=== PATIENT | female | born 1990 | race Caucasian/White ===

== ENCOUNTER 2018-12-27 04:12 | Emergency (ER) | payer OTHER, SELFPAY ==
[2018-12-27] MEDS ORDERED: traMADol HCl 50 MG TAB ONE (04:45)
[2018-12-27] MEDS ORDERED: Azithromycin 250 MG TAB ONE (04:46)
== END 2018-12-27 05:00 | disposition home or self-care (01) ==
LOC: MADERS 04:12
DX: K04.7 Periapical abscess without sinus (principal); K02.9 Dental caries, unspecified; K03.81 Cracked tooth; F32.9 Major depressive disorder, single episode, unspecified
CPT/HCPCS: 99282

== ENCOUNTER 2019-08-06 12:47 | Emergency (ER) | payer OTHER ==
[2019-08-06 13:35] LABS: Bilirubin Negative (Negative); Blood, Urine Large (Negative); Clarity Cloudy (Clear); Glucose, Urine (Dipstick) Negative (Negative); Leukocyte Negative (Negative); Nitrite Negative (Negative); Protein, Urine (Dipstick) 100 mg/dL (Neg-Trace); Urobilinogen 0.2 mg/dL (Less than 2)
[2019-08-06 13:36] LABS: RBC/HPF Greater than 50 HPF (0-3)
[2019-08-06 13:37] LABS: Bacteria/HPF 3+ HPF (None Seen)
[2019-08-06 13:38] LABS: Pregnancy Test - Urine (BHCG) Negative (Negative); Pregu Control Background? CLEAR/WHITE (CLR/WHITE); Pregu Control Bar Appear? YES (CONTROL BAR); Specific Gravity 1.015 (1.002-1.036)
[2019-08-06] MEDS ORDERED: Ketorolac Tromethamine 30 MG/ML VIAL ONE (13:58)
[2019-08-06 15:06] LABS: Anisocytosis SLIGHT = 6-15 cells (100X) (0-5/hpf); Band 4 % (5-11); Eosinophils 2 % (0-10); Hemoglobin 13.5 g/dL (12.0-16.0); Hypochromia SLIGHT = 6-15 cells (100X) (0-5/hpf); Lymphocytes 23 % (21-51); MDiff Complete? YES; Mean Corpuscular HGB CONC 31.8 g/dL (32.0-36.0); Mean Corpuscular Hemoglobin 27.6 pg (27.0-31.0); Mean Corpuscular Volume 86.9 fL (78.0-98.0); Mean Platelet Volume 7.9 fL (7.4-10.4); Monocytes 5 % (0-10); Neutrophil 66 % (42-75); Platelet Count 189 thou/uL (130-400); Platelet Morphology Comment Appears Adequate; RBC Distribution Width 12.5 % (11.5-14.5); Red Blood Cell (RBC) Count 4.89 mill/uL (4.20-5.40); White Blood Cell (WBC) Count 9.5 thou/uL (4.8-10.8)
[2019-08-06 15:08] LABS: Anion Gap 16 mmol/L (10-20); BUN (Urea Nitrogen) 5 mg/dL (7.0-18.7); Calc. Creatinine Clearance 0 mL/min (70-130); Calcium 8.7 mg/dL (7.8-10.44); Carbon Dioxide 19 mmol/L (22-29); Chloride 108 mmol/L (98-107); Estimated GFR-MDRD Greater than 90; Glucose 89 mg/dL (70-105); Potassium 4.5 mmol/L (3.5-5.1); Sodium 138 mmol/L (136-145)
[2019-08-08 19:17] LABS: Chlamydia by PCR Inconclusive (NotDetected); GC by PCR Inconclusive (NotDetected)
== END 2019-08-06 14:55 | disposition short-term general hospital (02) ==
LOC: MADERS 12:47
DX: R10.2 Pelvic and perineal pain (principal); F32.9 Major depressive disorder, single episode, unspecified
CPT/HCPCS: 80048; 81003; 81015; 81025; 85025; 87480; 87491; 87510; 87591; 87660; 96372; 99284; J1885

== ENCOUNTER 2020-02-27 23:19 | Emergency (ER) | payer OTHER ==
[~2020-02-27 23:19] MED LIST: Iopamidol 370 76% 100 ML VIAL ONE
[2020-02-28] MEDS ORDERED: Morphine 4 MG/ML VIAL ONE (00:02)
[2020-02-28] MEDS ORDERED: Sodium Chloride 0.9% 1,000 ML ONE (00:02)
[2020-02-28] MEDS ORDERED: Ondansetron PF 4 MG/2 ML Vial ONE (00:02)
[2020-02-28 00:06] LABS: #Basophils 0.1 thou/uL (0.0-0.2); #Eosinphils 0.2 thou/uL (0.0-0.7); #Lymphocytes 3.4 thou/uL (1.20-3.40); #Monocytes 0.7 thou/uL (0.11-0.59); %Basophils 1.2 % (0.0-1.0); %Eosinophils 1.5 % (0.0-10.0); %Lymphocytes 32.5 % (21.0-51.0); %Monocytes 7.1 % (0.0-10.0); %Neutrophils 57.7 % (42.0-75.0); Hemoglobin 13.9 g/dL (12.0-16.0); Mean Corpuscular HGB CONC 31.7 g/dL (32.0-36.0); Mean Corpuscular Hemoglobin 27.6 pg (27.0-31.0); Mean Corpuscular Volume 87.1 fL (78.0-98.0); Mean Platelet Volume 8.6 fL (7.4-10.4); Platelet Count 174 thou/uL (130-400); RBC Distribution Width 12.8 % (11.5-14.5); Red Blood Cell (RBC) Count 5.03 mill/uL (4.20-5.40); White Blood Cell (WBC) Count 10.3 thou/uL (4.8-10.8)
[2020-02-28 00:24] LABS: ALT (SGPT) 42 U/L (8-55); AST (SGOT) 30 U/L (5-34); Albumin 4.1 g/dL (3.5-5.0); Alkaline Phosphatase 59 U/L (40-110); Anion Gap 13 mmol/L (10-20); BUN (Urea Nitrogen) 10 mg/dL (7.0-18.7); Bilirubin, Total 0.4 mg/dL (0.2-1.2); CRP (Inflammatory) 1.19 mg/dL (= or < 0.5); Calc. Creatinine Clearance 0 mL/min (70-130); Carbon Dioxide 19 mmol/L (22-29); Chloride 109 mmol/L (98-107); Estimated GFR-MDRD Greater than 90; Globulin 3.2 g/dL (2.4-3.5); Glucose 107 mg/dL (70-105); Protein, Total 7.3 g/dL (6.0-8.3); Sodium 137 mmol/L (136-145)
[2020-02-28 00:45] LABS: Bilirubin Negative (Negative); Blood, Urine Negative (Negative); Clarity Slightly Cloudy (Clear); Glucose, Urine (Dipstick) Negative (Negative); Ketone, Urine Negative (Negative); Leukocyte Negative (Negative); Nitrite Negative (Negative); Pregnancy Test - Urine (BHCG) Negative (Negative); Protein, Urine (Dipstick) Negative (Neg-Trace); Urobilinogen 0.2 mg/dL (Less than 2); pH, Urine 5.5 (5.0-9.0)
[2020-02-28 00:46] LABS: Pregu Control Background? CLEAR/WHITE (CLR/WHITE); Pregu Control Bar Appear? YES (CONTROL BAR); Specific Gravity 1.032 (1.002-1.036)
[2020-02-28 00:49] LABS: Specific Gravity, Urine 1.032 (1.005-1.030)
[2020-02-28] MEDS ORDERED: Ketorolac Tromethamine 30 MG/ML VIAL ONE (01:38)
--- NOTE | 2020-02-28 10:08 | CT ---
PRELIMINARY REPORT/[facility]/EMERGENCY AFTER HOURS PROCEDURE: EXAM: CT Abdomen and Pelvis with Intravenous Contrast CLINICAL HISTORY: RLQ PAIN X3 DAYS TECHNIQUE: Axial computed tomography images of the abdomen and pelvis with intravenous contrast. CONTRAST: With; 90 ml ISOVUE 370 COMPARISON: None provided. FINDINGS: LUNG BASES: No basilar airspace consolidation or pleural effusion. LIVER: The size is normal. There is fatty infiltration.. GALLBLADDER AND BILE DUCTS: Unremarkable. No calcified stone. No ductal dilation. PANCREAS: Unremarkable. SPLEEN: Unremarkable. ADRENAL GLANDS: Unremarkable. KIDNEYS, URETERS, AND BLADDER: Unremarkable. No hydronephrosis or nephrolithiasis. No ureteral or bladder calculi. STOMACH AND BOWEL: No obstruction. No wall thickening. No CT evidence of colitis or acute diverticulitis. APPENDIX: No CT evidence for appendicitis. The appendix is normal. PERITONEUM: No free fluid. No free air. LYMPH NODES: No lymphadenopathy. REPRODUCTIVE: The uterus is normal. There is a 2 cm cyst on the left ovary. VASCULATURE: No aortic aneurysm. BONES: No fracture or suspicious osseous abnormality. ABDOMINAL WALL AND SOFT TISSUES: Unremarkable. IMPRESSION: No acute intra-abdominal or pelvic abnormality. There is fatty infiltration of the liver. The appen liliya is normal. Small 2 cm cyst on the left ovary. ELECTRONICALLY SIGNED BY: Yesi Wang DO Feb 28, 2020 1:20:51 AM [employer] This report is intended for review by the ordering physician only, in accordance of law. If you recei ve this report in error, please call [facility] at [phone]. FINAL REPORT CT ABDOMEN AND PELVIS WITH IV CONTRAST: There is mild inflammatory change in the intrapelvic fat in the right deep pelvis, which was not ment ioned on the preliminary report by [facility]. These findings are nonspecific and may be due to PID or epiploic appendagitis. Discussed over the telephone with ER physician, Dr. Babin, at [id number] rs on 02/28/2020. I agree with the remainder of the preliminary report given by [facility]. POS: TAMERA
== END 2020-02-28 01:48 | disposition home or self-care (01) ==
LOC: MADERS 23:19
DX: N83.202 Unspecified ovarian cyst, left side (principal); F32.9 Major depressive disorder, single episode, unspecified
CPT/HCPCS: 74177; 80053; 81003; 81025; 83605; 85025; 86140; 96374; 96375; J1885; J2270; J2405; J7050; Q9967

== ENCOUNTER 2021-04-28 13:26 | Outpatient (CLI) | payer OTHER | END 2021-04-28 13:27 | disposition home or self-care (01) | LOC: MADRAD 13:26 | PROVIDERS: ATTEND Registered Nurse | DX: M54.6 Pain in thoracic spine (principal) | CPT/HCPCS: 72070; 72100 ==

== ENCOUNTER 2022-01-13 12:46 | Emergency (ER) | payer OTHER ==
[2022-01-13 13:45] LABS: Bilirubin Negative (Negative); Blood, Urine Negative (Negative); Glucose, Urine (Dipstick) Negative (Negative); Ketone, Urine Negative (Negative); Leukocyte Trace (Negative); Nitrite Negative (Negative); Protein, Urine (Dipstick) Negative (Neg-Trace); Specific Gravity, Urine 1.025 (1.005-1.030); Urobilinogen 0.2 mg/dL (Less than 2)
[2022-01-13 13:50] LABS: Clarity Hazy (Clear); Pregnancy Test - Urine (BHCG) Negative (Negative); Pregu Control Background? CLEAR/WHITE (CLR/WHITE); Pregu Control Bar Appear? YES (CONTROL BAR); Specific Gravity 1.025 (1.002-1.036)
[2022-01-13 13:52] LABS: #Basophils 0.1 thou/uL (0.0-0.2); #Eosinphils 0.1 thou/uL (0.0-0.7); #Lymphocytes 1.4 thou/uL (1.20-3.40); #Monocytes 0.4 thou/uL (0.11-0.59); #Neutrophils 7.8 thou/uL (1.40-6.50); %Basophils 0.7 % (0.0-1.0); %Eosinophils 1.3 % (0.0-10.0); %Lymphocytes 14.6 % (21.0-51.0); %Monocytes 3.8 % (0.0-10.0); %Neutrophils 79.5 % (42.0-75.0); Hemoglobin 13.7 g/dL (12.0-16.0); Mean Corpuscular Volume 83.9 fL (78.0-98.0); Mean Platelet Volume 8.3 fL (7.4-10.4); Platelet Count 194 thou/uL (130-400); RBC Distribution Width 13.3 % (11.5-14.5); Red Blood Cell (RBC) Count 5.26 mill/uL (4.20-5.40); White Blood Cell (WBC) Count 9.8 thou/uL (4.8-10.8)
[2022-01-13 13:54] LABS: Bacteria/HPF 1+ HPF (None Seen); RBC/HPF 0-3 HPF (0-3); WBC/HPF 0-3 HPF (0-3)
[2022-01-13 14:08] LABS: ALT (SGPT) 22 U/L (8-55); AST (SGOT) 18 U/L (5-34); Albumin 4.4 g/dL (3.5-5.0); Alkaline Phosphatase 51 U/L (40-110); Anion Gap 13 mmol/L (10-20); BUN (Urea Nitrogen) 9 mg/dL (7.0-18.7); Bilirubin, Total 1.1 mg/dL (0.2-1.2); Calc. Creatinine Clearance 0 mL/min (70-130); Calcium 9.3 mg/dL (7.8-10.44); Carbon Dioxide 24 mmol/L (22-29); Chloride 107 mmol/L (98-107); Estimated GFR 97; Globulin 3.1 g/dL (2.4-3.5); Glucose 113 mg/dL (70-105); Magnesium 1.9 mg/dL (1.6-2.6); Potassium 3.5 mmol/L (3.5-5.1); Protein, Total 7.5 g/dL (6.0-8.3); Sodium 140 mmol/L (136-145)
[2022-01-13] MEDS ORDERED: Ketorolac Tromethamine 30 MG/ML VIAL ONE (14:15)
== END 2022-01-13 15:12 | disposition home or self-care (01) ==
LOC: MADERS 12:46
DX: K63.89 Other specified diseases of intestine (principal)
CPT/HCPCS: 74177; 80053; 81003; 81015; 81025; 83735; 85025; J1885; Q9967

== ENCOUNTER 2022-12-21 09:37 | Outpatient (CLI) | payer OTHER | END 2022-12-21 09:38 | disposition home or self-care (01) | LOC: MADRAD 09:37 | PROVIDERS: ATTEND Physician Assistant | DX: R53.1 Weakness (principal); M48.02 Spinal stenosis, cervical region | CPT/HCPCS: 72050 ==

== ENCOUNTER 2023-09-20 11:21 | Emergency (ER) | payer MEDICAID, OTHER | END 2023-09-20 12:39 | disposition home or self-care (01) | LOC: MADERS 11:21 | DX: J02.9 Acute pharyngitis, unspecified (principal) | CPT/HCPCS: 87081; 87430; 99283 ==

== ENCOUNTER 2024-12-14 05:49 | Emergency (ER) | payer OTHER ==
[2024-12-14] MEDS ORDERED: Cyclobenzaprine 10 MG TAB ONE (06:21)
[2024-12-14] MEDS ORDERED: HYDROcodone/Acetaminophen 5/325 mg Tablet ONE (06:22)
[2024-12-14] MEDS ORDERED: Ketorolac Tromethamine 30 MG (1 mL) VIAL ONE (06:22)
== END 2024-12-14 06:38 | disposition home or self-care (01) ==
LOC: MADERS 05:49
DX: M62.830 Muscle spasm of back (principal); Z55.6 Problems related to health literacy
CPT/HCPCS: 96372; 99283; J1885

== ENCOUNTER 2025-02-22 05:46 | Emergency (ER) | payer OTHER, SELFPAY ==
[2025-02-22] MEDS ORDERED: Orphenadrine Citrate 60 MG/2 ML VIAL ONE (06:17)
[2025-02-22] MEDS ORDERED: Ketorolac Tromethamine 30 MG (1 mL) VIAL ONE (06:17)
== END 2025-02-22 07:30 | disposition home or self-care (01) ==
LOC: MADERS 05:46
DX: M54.50 Low back pain, unspecified (principal); D64.9 Anemia, unspecified
CPT/HCPCS: J1885; J2360; Q0162